=== PATIENT | female | born 1975 | race Caucasian/White ===

== ENCOUNTER → 2021-07-24 | Outpatient (CLI) | payer OTHER | LOC: KOH-I 13:55 | DX: M87.9 Osteonecrosis, unspecified (principal); M16.11 Unilateral primary osteoarthritis, right hip | CPT/HCPCS: 73700 ==

== ENCOUNTER → 2021-09-06 | Outpatient (CLI) | payer OTHER ==
[~2021-09-06] MED LIST: IBUPROFEN200 MG PO; TYLENOL EXTRA500 MG PO
[2021-09-06 11:08] LABS: HEMOGLOBIN 16.8 gm/dl (12.3-15.3); RED BLOOD COUNT 5.07 M/UL (4.00-5.10); WHITE BLOOD COUNT 6.9 K/UL (4.5-11.0)
[2021-09-06 11:30] LABS: BUN/CREATININE RATIO 30 (0-10)
== END ==
LOC: EDSTATUS 09:00 → OPSV2 09:00
PROVIDERS: Orthopaedic Surgery
DX: Z01.818 Encounter for other preprocedural examination (principal); M16.11 Unilateral primary osteoarthritis, right hip
CPT/HCPCS: 36415; 71046; 80048; 83036; 85025; 93005

== ENCOUNTER 2021-09-19 05:17 | Day surgery (SDC) | payer OTHER ==
[~2021-09-19] VITALS: Ht 157.5 cm; Wt 68.0 kg
[2021-09-19 07:16] LABS: BUN/CREATININE RATIO 22 (0-10)
[2021-09-20 08:06] LABS: HEMOGLOBIN 11.1 gm/dl (12.3-15.3); RED BLOOD COUNT 3.51 M/UL (4.00-5.10); WHITE BLOOD COUNT 10.8 K/UL (4.5-11.0)
[2021-09-20 08:36] LABS: BUN/CREATININE RATIO 13 (0-10)
[2021-09-20] MEDS ORDERED: ELIQUIS2.5 MG PO (10:08)
[2021-09-20] MEDS ORDERED: ROXICODONE5 MG PO (10:17)
== END 2021-09-20 15:42 | disposition home or self-care (01) ==
LOC: OR 05:17 → M/S 05:17 → OR 07:30 → EDSTATUS 07:30 → M/S 14:34 → OR 14:34
PROVIDERS: Internal Medicine; Orthopaedic Surgery
DX: M87.850 Other osteonecrosis, pelvis (principal); M16.11 Unilateral primary osteoarthritis, right hip; G89.29 Other chronic pain; M54.9 Dorsalgia, unspecified; F17.210 Nicotine dependence, cigarettes, uncomplicated; Z88.5 Allergy status to narcotic agent; Z88.6 Allergy status to analgesic agent
CPT/HCPCS: 36415; 72170; 80048; 80053; 83735; 85025; 86850; 86900; 86901; 97110-GP-CQ; 97116-GP-CQ; 97162; 97165; 97530; 97535; C1713; C1776; J0690; J1100; J1170; J1885; J2001; J2250; J2370; J2405; J2704; J2795; J3010; J7120